=== PATIENT | female | born 1960 | race African-American/Black ===

== ENCOUNTER 2017-03-16 23:49 | Emergency (ER) | payer OTHER ==
[~2017-03-16] VITALS: Ht 167.6 cm; Wt 125.6 kg
[2017-03-17] MEDS ORDERED: SULFAMETHOXAZO480 ML ORAL
[2017-03-17] MEDS ORDERED: AMOX TR-K CLV1 EAC2 ORAL
[2017-03-17] MEDS ORDERED: AMLODIPINE BESYL5 MG ORAL
[2017-03-17] MEDS ORDERED: HYDROmorphone 1mg/ml Carpuject IVP ONE (00:45)
[2017-03-17 00:57] LABS: EOSINOPHILS % (AUTO) 3.4 % (0.0-3.0); LYMPHOCYTES % (AUTO) 34.1 % (20.0-45.0); MEAN CORPUSCULAR HEMOGLOBIN 30.2 PG (27.0-31.0); MEAN CORPUSCULAR HGB CONC 32.7 G/DL (32.0-36.0); MEAN CORPUSCULAR VOLUME 92 FL (80-99); MEAN PLATELET VOLUME 6.2 FL (6.5-10.1); MONOCYTES % (AUTO) 4.4 % (1.0-10.0); NEUTROPHILS % (AUTO) 57.1 % (45.0-75.0); PLATELET COUNT 378 K/UL (150-450); RED BLOOD COUNT 4.26 M/UL (4.20-5.40); RED CELL DISTRIBUTION WIDTH 14.3 % (11.6-14.8); WHITE BLOOD COUNT 5.8 K/UL (4.8-10.8)
[2017-03-17 01:19] LABS: ANION GAP 15 (5-15); CALCIUM 10.5 mg/dL (8.6-10.2); CARBON DIOXIDE 26 mEQ/L (20-30); CHLORIDE 102 mEQ/L (98-107); CREATININE 0.7 mg/dL (0.5-0.9); GLOMERULAR FILTRATION RATE > 60 mL/min (>60); HEMOLYSIS 0; POTASSIUM 3.9 mEQ/L (3.4-4.9); SODIUM 143 mEQ/L (135-145)
[2017-03-17] MEDS ORDERED: HYDROCODON-ACE1 EA15 ORAL (02:42)
--- NOTE | 2017-03-17 02:42 | Emergency Room Report ---
History of Present Illness General Chief Complaint: Pain Source: Patient Present Illness HPI A 56-year-old male who had a recent left knee replacement. She presents with left knee pain and leg swelling. Has been ongoing for about a week. She went to urgent care yesterday through her insurance. Ultrasound and knee show no fluid. He did not do a DVT study. Patient said is better when she elevates the leg. She does that his swelling goes down but localized to the knee. Denies any trauma. No fever chill been no nausea no vomiting. Pain is 8/10. Worse with walking. Allergies: Uncoded Allergies: SHELLFISH (Allergy, Intermediate, 03/16/17) Patient History Past Medical History: see triage record, old chart reviewed Past Surgical History: none Pertinent Family History: none Social History: Denies: smoking Last Menstrual Period: 09/26/2015 Now: No : 3 Para: 2 Immunizations: other Reviewed Nursing Documentation: PMH: Agreed, PSxH: Agreed Nursing Documentation-PMH Hx Hypertension: Yes Review of Systems Eye: Denies: blurred vision, eye pain ENT: Denies: ear pain, nose congestion, throat swelling Respiratory: Denies: cough, shortness of breath Cardiovascular: Denies: chest pain, palpitations Gastrointestinal: Denies: abdominal pain, diarrhea, nausea, vomiting Musculoskeletal: Reports: joint pain, joint swelling, muscle pain, Denies: back pain Skin: Denies: rash Neurological: Denies: headache, numbness Endocrine: Denies: increased thirst, increased urine Hematologic/Lymphatic: Denies: easy bruising All Other Systems: negative except mentioned in HPI Physical Exam Vital Signs Date Time Temp Pulse Resp B/P Pulse Ox O2 Delivery O2 Flow Rate FiO2 03/16/17 23:54 98.4 97 14 135/75 98 Room Air vitals normal Sp02 EP Interpretation: reviewed, normal General Appearance: well appearing, no apparent distress, alert, obese Head: normocephalic, atraumatic Eyes: bilateral eye EOMI, bilateral eye PERRL ENT: hearing grossly normal, normal pharynx Neck: full range of motion, supple, no meningismus Respiratory: chest non-tender, lungs clear, normal breath sounds Cardiovascular #1: regular rate, rhythm, no murmur Gastrointestinal: normal bowel sounds, non tender, no mass, no organomegaly, no bruit, non-distended Musculoskeletal: back normal, gait/station normal, normal range of motion, other - Left leg: Surgical scar healing well. 1+ edema from the knee to the foot. Normal pulses. No warmth. No calf tenderness. Neurologic: alert, oriented x3 Psychiatric: mood/affect normal Skin: warm/dry Medical Decision Making Diagnostic Impression: Primary Impression: Leg edema, left Additional Impression: Post-operative pain ER Course Patient presents with postoperative pain and swelling. No evidence of DVT. She has full range of motion of the joint. No evidence of septic joint. Doubt cellulitis. Labs unremarkable. Pain is well-controlled. We'll discharge home. Other X-Ray Diagnostic Results X-Ray ordered: Left knee x-rays # of Views/Limited Vs Complete: 3 View Interpretation: no fractures, no dislocation, no soft tissue swelling Indication: Swelling Impression: Other - Postoperative changes Date Electronically Signed: Mar 17, 2017 Time Electronically Signed: 02:41 Interpreting ER Physician: Lul Cleveland MD CT/MRI/US Diagnostic Results CT/MRI/US Diagnostic Results : Imaging Test Ordered: Left leg US Impression negative DVT per quality nurse Last Vital Signs Date Time Temp Pulse Resp B/P Pulse Ox O2 Delivery O2 Flow Rate FiO2 03/16/17 23:54 98.4 97 14 135/75 98 Room Air Status: improved Disposition: HOME, SELF-CARE Condition: Stable Scripts Hydrocodone/Acetaminophen 5-325* (HYDROCODONE/ACETAMINOPHEN 5-325*) 1 Each Tablet 1 TAB ORAL Q6H Y for For Pain, #20 TAB 0 Refills Prov: LUL CLEVELAND M.D. 03/17/17 Referrals: [employer] [facility],REFERRIN (PCP) Additional Instructions: Followup with your DrTeresa in 2-5 days. Return if symptom worsen. Elevate your leg. LUL CLEVELAND M.D. Mar 17, 2017 02:42
[2017-03-17 02:50] VITALS: BP 137/77
[2017-03-17 02:51] VITALS: BP 135/75
--- NOTE | 2017-03-17 09:24 | Diagnostic Imaging Report ---
Indications: Left knee pain Technique: 2 views left knee Findings: Comparison: None Soft tissues are mildly, diffusely swollen. Increased density is present in the former region of the suprapatellar bursa. Components of the prosthesis intact, normally aligned. No fracture, dislocation, joint space widening, lytic destruction, periosteal reaction, soft tissue gas or foreign body, or other acute change demonstrated. Small well-corticated osseous densities project over the posterior margin of the knee joint space on lateral view. No periprosthetic lucency or other chronic change demonstrated. IMPRESSION: Soft tissue swelling, nonspecific Fluid in the former region of suprapatellar bursa (typically resected with performance of arthroplasty (not excludable Knee joint prosthesis intact
--- NOTE | 2017-03-17 13:46 | Diagnostic Imaging Report ---
APPROVED REPORT CPT Code: 15084 Present Symptoms Lower Extremity Pain: Left Lower Extremity Edema: Left LEFT LEG: Venous imaging reveals a patent deep venous system. There is no evidence of thrombus within the femoral, popliteal or tibial segments. The greater saphenous vein is also within normal limits. Doppler indicates normal spontaneous flow within these segments.
== END 2017-03-17 02:52 | disposition home or self-care (01) ==
LOC: EMR 03-17 00:38
DX: G89.18 Other acute postprocedural pain (principal); M25.562 Pain in left knee; R60.0 Localized edema; Z96.652 Presence of left artificial knee joint; Z91.013 Allergy to seafood
CPT/HCPCS: 36415; 73562; 80048; 85025; 93971; 96374; 96375; 99284; J1170; J2405

== ENCOUNTER 2019-11-14 10:05 | Emergency (ER) | payer BC, MEDICAID ==
[~2019-11-14] VITALS: Ht 170.2 cm; Wt 135.2 kg
[~2019-11-14 10:05] MED LIST: AMLODIPINE BESYL5 MG ORAL; AMOX TR-K CLV1 EAC2 ORAL; HYDROCODON-ACE1 EA15 ORAL; SULFAMETHOXAZO480 ML ORAL
[2019-11-14 10:15] VITALS: BP 131/79
--- NOTE | 2019-11-14 10:20 | NUR ---
ED Nurse Note: Patient came to ED from home c/o 5/10 chest pressure x 2 weeks. Pain persists whether resting or exerting herself, does not worsen on exertion. Patient denies, shortness of breath, nausea, or radiating chest pain. Patient AxO x 4, no s/s of acut distress. Patient on the ekg monitor, bed in lowest position. Family member at bedside.
--- NOTE | 2019-11-14 10:26 | Emergency Room Report ---
History of Present Illness General Chief Complaint: Chest Pain Source: Patient, Family Member - sister Present Illness HPI Patient is a 59-year-old female past medical history of obesity, hypertension and hyperlipidemia who presents to the ER complaining of chest pain. Patient complains of substernal chest pressure that is been intermittent for the past 3 weeks. She states that when she gets the pain she gets short of breath and diaphoretic. She denies any recent travel. She denies being on any hormone replacement therapy she denies any abdominal pain, nausea or vomiting. She is not on daily aspirin. She states that her mother had CHF. 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 Patient states that she had bilateral knee replacements 1 year ago and one 2 years ago and since then has had significant weight increase and decreased physical activity. She states that she does get around on her own daily though. Allergies: Uncoded Allergies: SHELLFISH (Allergy, Intermediate, 03/16/17) Patient History Past Medical History: HTN, other - HLD Past Surgical History: other - BL knee replacement Social History: Denies: smoking, alcohol use, drug use Last Menstrual Period: MENOPAUSAL Now: No Nursing Documentation-[facility] Past Medical History: No History, Except For Hx Hypertension: Yes Review of Systems All Other Systems: negative except mentioned in HPI Physical Exam Vital Signs Date Time Temp Pulse Resp B/P (MAP) Pulse Ox O2 Delivery O2 Flow Rate FiO2 11/14/19 10:12 97.2 79 20 131/79 (96) 100 Room Air Sp02 EP Interpretation: reviewed, normal General Appearance: no apparent distress, alert, GCS 15, non-toxic, obese Head: normocephalic, atraumatic Eyes: bilateral eye normal inspection, bilateral eye PERRL ENT: hearing grossly normal, normal pharynx, no angioedema, normal voice Neck: full range of motion, supple/symm/no masses Respiratory: chest non-tender, lungs clear, normal breath sounds, speaking full sentences Cardiovascular #1: regular rate, rhythm, no edema Gastrointestinal: normal bowel sounds, non tender, soft, non-distended, no guarding, no rebound Rectal: deferred Genitourinary: normal inspection, no CVA tenderness Musculoskeletal: back normal, normal range of motion, calf tenderness, gait/ station normal, non-tender Neurologic: alert, motor strength/tone normal, oriented x3, sensory intact, responsive, speech normal Psychiatric: judgement/insight normal, memory normal, mood/affect normal, no suicidal/homicidal ideation Skin: no rash Lymphatic: no adenopathy Medical Decision Making Diagnostic Impression: Primary Impression: Chest pain ER Course 11:19 am patient's EKG demonstrates no ST elevation. Patient given 162 mg of aspirin as well as sublingual nitro. Patient still complains of persistent substernal chest pressure 5 out of 10. I have ordered for 50 mg of IV Toradol. Patient's d-dimer is elevated CT angios ordered to rule out pulmonary embolism. 0105 pm I spoke with Dr. Klein regarding the patient. Patient will be admitted to telemetry. CT Nga of the chest is still pending at the time of admission and he is aware of this. Will be admitted for chest pain rule out ACS. EKG Diagnostic Results EKG Time: 10:19 EP Interpretation: MD Josie Rate: normal Rhythm: NSR ST Segments: no acute changes ASA given to the pt in ED: Yes Rhythm Strip Diag. Results Rhythm Strip Time: 10:25 EP Interpretation: yes Rate: 74 Rhythm: NSR, no PVC's, no ectopy Last Vital Signs Date Time Temp Pulse Resp B/P (MAP) Pulse Ox O2 Delivery O2 Flow Rate FiO2 11/14/19 10:12 97.2 79 20 131/79 (96) 100 Room Air Disposition: PLACE IN OBSERVATION Condition: Critical Physician Consult: Meg Arriaga M.D. Nov 14, 2019 10:26
[2019-11-14] MEDS ORDERED: Aspirin Baby 81mg ORAL ONE (10:30)
[2019-11-14] MEDS ORDERED: Nitroglycerin Subl 0.4mg tab SL PRN ×2 (10:30→17:15)
--- NOTE | 2019-11-14 10:38 | NUR ---
ED Nurse Note: 20 g IV started in right AC. Blood drawn and sent to lab. Patient tolerated nitro well, current BP 110/61.
[2019-11-14] MEDS ORDERED: ATORVASTATIN CA40 MG ORAL (10:42)
[2019-11-14 10:54] LABS: BASOPHILS % (AUTO) 1.5 % (0.0-2.0); EOSINOPHILS % (AUTO) 2.4 % (0.0-3.0); HEMATOCRIT 39.9 % (37.0-47.0); HEMOGLOBIN 13.5 G/DL (12.0-16.0); LYMPHOCYTES % (AUTO) 39.6 % (20.0-45.0); MEAN CORPUSCULAR VOLUME 88 FL (80-99); MONOCYTES % (AUTO) 5.7 % (1.0-10.0); NEUTROPHILS % (AUTO) 50.8 % (45.0-75.0); PLATELET COUNT 313 K/UL (150-450); RED BLOOD COUNT 4.55 M/UL (4.20-5.40); RED CELL DISTRIBUTION WIDTH 13.2 % (11.6-14.8); WHITE BLOOD COUNT 6.4 K/UL (4.8-10.8)
[2019-11-14 11:15] LABS: ANION GAP 9 mmol/L (5-15); BLOOD UREA NITROGEN 9 mg/dL (7-18); CALCIUM 9.7 MG/DL (8.5-10.1); CARBON DIOXIDE 27 MMOL/L (21-32); CHLORIDE 107 MMOL/L (98-107); CREATININE 0.6 MG/DL (0.55-1.30); POTASSIUM 3.5 MMOL/L (3.5-5.1); SODIUM 143 MMOL/L (136-145)
[2019-11-14 11:24] LABS: ALANINE AMINOTRANSFERASE 21 U/L (12-78); ALBUMIN 3.4 G/DL (3.4-5.0); ALBUMIN/GLOBULIN RATIO 0.9 (1.0-2.7); ALKALINE PHOSPHATASE 161 U/L (46-116); ASPARTATE AMINO TRANSFERASE 15 U/L (15-37); BILIRUBIN,TOTAL 0.5 MG/DL (0.2-1.0)
[2019-11-14] MEDS ORDERED: Omnipaque 350 100ml vial INJ PRN (11:30)
[2019-11-14] MEDS ORDERED: Ketorolac 30mg Inj IV ONE (11:30)
[2019-11-14 12:00] VITALS: BP 130/80
[2019-11-14 14:01] VITALS: BP 122/68
--- NOTE | 2019-11-14 14:09 | NUR ---
ED Nurse Note: Handoff report given to Martina FERRARO.
--- NOTE | 2019-11-14 14:17 | Diagnostic Imaging Report ---
ndication: Chest pain, substernal chest pressure. Intermittent for the last 3 weeks Technique: IV administration nonionic contrast. Spiral acquisitions obtained from the lung bases to the lung apices. Multiplanar and 3-D reconstructions were generated. Total dose length product 1479 mGycm. CTDIvol(s) 5, 20, 52, 39 mGy. Dose reduction achieved using automated exposure control Comparison: none Findings: There is good quality opacification of the pulmonary arteries. No intraluminal filling defects or other findings to suggest acute pulmonary embolism demonstrated. The main pulmonary artery is mildly ectatic, measuring 36 mm in diameter, all of the main pulmonary arteries are nondilated. No evidence of right ventricular dilatation. No evidence of thoracic aortic aneurysm or dissection. Normal branching anatomy and caliber of the great neck vessels. There is origin stenosis and poststenotic dilatation of the celiac axis origin, appearance of which is suggestive of some arcuate ligament compression. The lungs demonstrate diffuse mild groundglass opacity and a somewhat mosaic pattern. No definite interstitial septal thickening. No dense consolidation. There are posterior dependent atelectatic changes of the lung bases. There is a small cystic space in the right middle lobe. No masses, nodules, or pleural effusions are demonstrated. The heart is normal in size. There is no pericardial effusion. No mediastinal or hilar mass or adenopathy. The included portion of the thyroid is unremarkable. Included upper abdominal anatomy is unremarkable. Impression: Negative for evidence of acute pulmonary embolus or other acute thoracic vascular pathology Mild pulmonary parenchymal groundglass opacity, nonspecific. This may reflect mild pulmonary edema, COPD changes, atelectasis, postinflammatory changes, among other possibilities Single small bulla within the right middle lobe The CT scanner at [facility] is accredited by the [employer] and the scans are performed using protocols designed to limit radiation exposure to as low as reasonably achievable to attain images of sufficient resolution adequate for diagnostic evaluation.
--- NOTE | 2019-11-14 15:20 | Diagnostic Imaging Report ---
Indication: Chest pain Technique: One view of the chest Comparison: none Findings: The lungs and pleural spaces are clear. The heart size is normal. Impression: Negative
[2019-11-14] MEDS ORDERED: Miralax 17gm pkt ORAL PRN (17:15)
[2019-11-14] MEDS ORDERED: Milk of Magnesia 30ml Ud ORAL PRN (17:15)
[2019-11-14] MEDS ORDERED: Aluminum Hydroxide Gel Susp 15ml ORAL PRN (19:15)
--- NOTE | 2019-11-14 19:40 | NUR ---
HAND-OFF: Report given to Chloe RN pt in stable condition.
--- NOTE | 2019-11-14 19:50 | History and Physical ---
History of Present Illness General Reason for Hospitalization: Chest Pain Present Illness HPI This is a 59-year-old female with a past medical history of hypertension, hyperlipidemia, obesity who presents with intermittent chest pressure lasting minutes at a time midsternal nonradiating with associated diaphoresis on and off for the past 3 weeks. She denies having any pain like this before. She states that she does not have a recent cold sinus infection and finished a course of Augmentin and Bactrim 2 to 3 weeks ago. Patient states that she does think her chest pain gets worse when she lays down. She denies any other acid reflux symptoms. In the ER the patient had stable vital signs CBC unremarkable CMP unremarkable. Initial troponin negative. D-dimer checked and was 1.81 so a CTPA was ordered which showed no pulmonary embolism and mild pulmonary parenchymal opacities which are nonspecific and include a broad differential. Allergies none Medications atorvastatin 40 mg, amlodipine 5 mg Past medical history see HPI Mother with CAD and [place] at 76 Surgical history knee replacement Social history denies tobacco alcohol and drug use Review of systems: Constitutional: Denies: chills, fever, malaise, weakness, other +diaphoresis HEENT: Denies: eye pain, blurred vision, tearing, double vision, ear pain, ear discharge, nose pain, nose congestion, throat pain, throat swelling, mouth pain , mouth swelling, Cardiovascular: Denies: chest pain (currently), edema, lightheadedness, palpitations, syncope, Respiratory: Denies: cough, orthopnea, shortness of breath, SOB with excertion , SOB at rest, sputum, stridor, wheezing, other Gastrointestinal/Abdominal: Denies: abdomen distended, abdominal pain, black stools, tarry stools, blood in stool, constipated, diarrhea, difficulty swallowing, nausea, poor appetite, poor fluid intake, rectal bleeding, vomiting , other Genitourinary: Denies: burning, discharge, frequency, flank pain, hematuria, incontinence, pain, urgency, other Neurologic/Psychiatric: Denies: anxiety, depressed, emotional problems, headache, numbness, paresthesia, pre-existing deficit, seizure, tingling, tremors, weakness, other Endocrine: Denies: excessive sweating, flushing, intolerance to cold, intolerance to heat, increased hunger, increased thirst, increased urine, unexplained weight gain, unexplained weight loss, other MSK: denies joint pains, swelling, stiffness Hematologic/Lymphatic: Denies: anemia, easy bleeding, easy bruising, other Allergies: Uncoded Allergies: SHELLFISH (Allergy, Intermediate, 03/16/17) Medication History Scheduled Amlodipine Besylate* (Amlodipine Besylate*), 5 MG ORAL DAILY, (Reported) Atorvastatin Calcium* (Atorvastatin Calcium*), 40 MG ORAL BEDTIME, (Reported) Discontinued Medications Amoxicillin/Potassium Clav 875-125 Mg Tab* (Amox Tr-K Clv 875-125 Mg Tab*), 1 TAB ORAL EVERY 12 HOURS, (Reported) Discontinued Reason: Therapy completed Hydrocodone/Acetaminophen 5-325* (Hydrocodone/Acetaminophen 5-325*), 1 TAB ORAL Q6H PRN for For Pain Discontinued Reason: Therapy completed Sulfamethoxazole/Trimethoprim (Sulfamethoxazole-Tmp Susp), 5 ML ORAL TWICE A DAY , (Reported) Discontinued Reason: Therapy completed Patient History Healthcare decision maker Resuscitation status Full Code Advanced Directive on File Physical Exam Physical Exam Narrative General: WDWN female in NAD, A&O x 4 HEENT: Normocephalic cephalic atraumatic, pupils equal round reactive to light and accommodation, nares patent and no symmetrical, no tonsillar exudates, mucous membranes moist CV: Regular rate regular rhythm, no murmurs, rubs, or gallops no tenderness to palpation of chest wall Pulm: Lungs clear to auscultation bilaterally. No wheezes, rhonchi, or rales GI: Soft, nontender, nondistended, bowel sounds present Neuro: CN 2-12 intact bilaterally, no focal signs. Ext: No lower extremity edema bilaterally Skin: no rashes lesions or ulcers Msk: Joints symmetrical in upper extremity and lower extremity bilaterally, no joint swelling. Lymph: No lymphadenopathy in upper extremity and lower extremity Last 24 Hour Vital Signs Date Time Temp Pulse Resp B/P (MAP) Pulse Ox O2 Delivery O2 Flow Rate FiO2 11/14/19 17:33 Room Air 11/14/19 14:01 97.1 78 19 122/68 100 Room Air 11/14/19 12:41 97.1 11/14/19 12:00 97.3 76 19 130/80 100 Room Air 11/14/19 10:27 131/79 11/14/19 10:15 97.2 79 20 131/79 100 Room Air 11/14/19 10:15 79 20 Room Air 11/14/19 10:12 97.2 79 20 131/79 (96) 100 Room Air Laboratory Tests Test 11/14/19 10:35 11/14/19 18:50 White Blood Count 6.4 K/UL (4.8-10.8) Red Blood Count 4.55 M/UL (4.20-5.40) Hemoglobin 13.5 G/DL (12.0-16.0) Hematocrit 39.9 % (37.0-47.0) Mean Corpuscular Volume 88 FL (80-99) Mean Corpuscular Hemoglobin 29.6 PG (27.0-31.0) Mean Corpuscular Hemoglobin Concent 33.8 G/DL (32.0-36.0) Red Cell Distribution Width 13.2 % (11.6-14.8) Platelet Count 313 K/UL (150-450) Mean Platelet Volume 6.2 FL (6.5-10.1) L Neutrophils (%) (Auto) 50.8 % (45.0-75.0) Lymphocytes (%) (Auto) 39.6 % (20.0-45.0) Monocytes (%) (Auto) 5.7 % (1.0-10.0) Eosinophils (%) (Auto) 2.4 % (0.0-3.0) Basophils (%) (Auto) 1.5 % (0.0-2.0) D-Dimer 1.81 mg/L FEU (0.00-0.49) H Sodium Level 143 MMOL/L (136-145) Potassium Level 3.5 MMOL/L (3.5-5.1) Chloride Level 107 MMOL/L (98-107) Carbon Dioxide Level 27 MMOL/L (21-32) Anion Gap 9 mmol/L (5-15) Blood Urea Nitrogen 9 mg/dL (7-18) Creatinine 0.6 MG/DL (0.55-1.30) Estimat Glomerular Filtration Rate > 60 mL/min (>60) Glucose Level 100 MG/DL (74-106) Calcium Level 9.7 MG/DL (8.5-10.1) Magnesium Level 2.1 MG/DL (1.8-2.4) Total Bilirubin 0.5 MG/DL (0.2-1.0) Aspartate Amino Transf (AST/SGOT) 15 U/L (15-37) Alanine Aminotransferase (ALT/SGPT) 21 U/L (12-78) Alkaline Phosphatase 161 U/L (46-116) H Troponin I 0.000 ng/mL (0.000-0.056) 0.001 ng/mL (0.000-0.056) Pro-B-Type Natriuretic Peptide 5 pg/mL (0-125) Total Protein 7.4 G/DL (6.4-8.2) Albumin 3.4 G/DL (3.4-5.0) Globulin 4.0 g/dL Albumin/Globulin Ratio 0.9 (1.0-2.7) L Height (Feet): 5 Height (Inches): 7.00 Weight (Pounds): 298 Medications Current Medications Medications (Trade) Dose Ordered Sig/Melissa Route PRN Reason Start Time Stop Time Status Last Admin Dose Admin Aluminum Hydroxide (Amphojel) 960 mg Q6H PRN ORAL heartburn 11/14/19 19:15 12/14/19 19:14 Amlodipine Besylate (Norvasc) 5 mg DAILY ORAL 11/15/19 09:00 12/15/19 08:59 Atorvastatin Calcium (Lipitor) 40 mg BEDTIME ORAL 11/14/19 21:00 12/14/19 20:59 Bisacodyl (Dulcolax) 10 mg DAILYPRN PRN RECTAL Constipation 11/14/19 17:15 12/14/19 17:14 Docusate Sodium (Colace) 100 mg EVERY 12 HOURS ORAL 11/14/19 21:00 12/14/19 20:59 Magnesium Hydroxide (Mom) 30 ml HSPRN PRN ORAL Constipation 11/14/19 17:15 12/14/19 17:14 Nitroglycerin (Ntg) 0.4 mg Q5M PRN SL Prn Chest Pain 11/14/19 17:15 12/14/19 17:14 Pantoprazole (Protonix) 40 mg DAILY ORAL 11/14/19 19:15 12/14/19 19:14 Polyethylene Glycol (Miralax) 17 gm DAILYPRN PRN ORAL Constipation 11/14/19 17:15 12/14/19 17:14 Prochlorperazine (Compazine) 10 mg Q6H PRN IVP Nausea & Vomiting 11/14/19 17:15 12/14/19 17:14 Assessment/Plan Assessment/Plan: This is a 59-year-old female with a history of hypertension obesity hyperlipidemia presenting with atypical chest pain. #Chest pain rule out ACS #Hypertension #Morbid Obesity #Family history of coronary artery disease -Telemetry -Trend troponins -2D echocardiogram -Start Protonix as GERD may be possible etiology -Cardiology consult: Dr. Mcduffie -Patient may need stress test given risk factors (Obesity, HTN, family history) -N.p.o. after midnight -We will evp general counsel patient on diet and exercise 38 minutes spent on this encounter. Discussed with RN and Cardiology. > 50% spent on counseling and care coordination. Time of note may not reflect time patient was seen. Ajit Alfaro D.O. Nov 14, 2019 19:50
[2019-11-14 20:00] VITALS: BP 110/73
--- NOTE | 2019-11-14 20:00 | NUR ---
NURSE NOTES: Received pt and report from RONAN Mack. Observed pt resting in bed with both eyes open and watching television. Pt is A/Ox4. pvc monitor is in placed; pt is NSR. IV site intact, asymptomatic, and patent. Bed is in the lowest position and locked. Call light and bedside table is within reach. No signs/symptoms of acute distress noted at this time. Will continue plan of care.
--- NOTE | 2019-11-14 20:09 | NUR ---
NURSE NOTES: pt admitted to tele unit in stable condition no complains of pain at this time. V/s within normal limit. All belonging were check, she will only keep her cell phone with here and cloth. Her wallet and other valuables will be sent home with relatives today. Pt is on monitor technician and shows no signs of cardiac or respiratory distress at this time. Bed in lowest position and locked. Call light within reach. pt presently NPO Addendum: 11/14/19 at 2015 by Martina Witt RN NURSE NOTES: 1450 pt admitted to tele unit in stable condition no complains of pain at this time. V/s within normal limit. All belonging were check, she will only keep her cell phone with here and cloth. Her wallet and other valuables will be sent home with relatives today. Pt is on monitor technician and shows no signs of cardiac or respiratory distress at this time. Bed in lowest position and locked. Call light within reach. pt presently NPO
[2019-11-14] MEDS: Atorvastatin 20mg tab ORAL SCH (20:46)
[2019-11-14] MEDS: Docusate 100mg cap ORAL SCH (20:46)
[2019-11-15] VITALS: BP 125/80
--- NOTE | 2019-11-15 02:25 | NUR ---
NURSE NOTES: Observed pt asleep in bed. No signs/symptoms of acute distress noted at this time. Will continue plan of care.
[2019-11-15 04:00] VITALS: BP 119/72
[2019-11-15 05:39] LABS: BASOPHILS % (AUTO) 1.1 % (0.0-2.0); EOSINOPHILS % (AUTO) 2.6 % (0.0-3.0); HEMATOCRIT 37.5 % (37.0-47.0); HEMOGLOBIN 12.6 G/DL (12.0-16.0); LYMPHOCYTES % (AUTO) 38.4 % (20.0-45.0); MEAN CORPUSCULAR VOLUME 89 FL (80-99); MONOCYTES % (AUTO) 4.4 % (1.0-10.0); NEUTROPHILS % (AUTO) 53.5 % (45.0-75.0); PLATELET COUNT 293 K/UL (150-450); RED BLOOD COUNT 4.22 M/UL (4.20-5.40); RED CELL DISTRIBUTION WIDTH 13.2 % (11.6-14.8); WHITE BLOOD COUNT 7.2 K/UL (4.8-10.8)
[2019-11-15 06:12] LABS: ALANINE AMINOTRANSFERASE 19 U/L (12-78); ALBUMIN 3.2 G/DL (3.4-5.0); ALBUMIN/GLOBULIN RATIO 0.9 (1.0-2.7); ALKALINE PHOSPHATASE 152 U/L (46-116); ANION GAP 10 mmol/L (5-15); ASPARTATE AMINO TRANSFERASE 13 U/L (15-37); BILIRUBIN,TOTAL 0.4 MG/DL (0.2-1.0); BLOOD UREA NITROGEN 14 mg/dL (7-18); CALCIUM 9.5 MG/DL (8.5-10.1); CARBON DIOXIDE 27 MMOL/L (21-32); CHLORIDE 106 MMOL/L (98-107); CREATININE 0.7 MG/DL (0.55-1.30); PHOSPHORUS 3.7 MG/DL (2.5-4.9); SODIUM 143 MMOL/L (136-145)
--- NOTE | 2019-11-15 07:30 | NUR ---
NURSE NOTES: pt in bed sleeping. Pt on air sampling and monitoring no signs of cardiac or respiratory distress at this moment. Call light within reach. Bed is locked and in lowest position. Pt is currently NPO, for future procedure.
--- NOTE | 2019-11-15 07:35 | NUR ---
HAND-OFF: Report given to RONAN Mack. Plan of care endorsed.
[2019-11-15 08:03] VITALS: BP 130/77
[2019-11-15] MEDS: Docusate 100mg cap ORAL SCH ×2 (09:47→22:03)
[2019-11-15 12:00] VITALS: BP 130/77
--- NOTE | 2019-11-15 14:12 | NUR ---
*-* NO INFORMATION IN THE BAR UNABLE TO SEND CLINICALS OR REVIEWS *-*
--- NOTE | 2019-11-15 14:14 | NUR ---
CASE MANAGEMENT: INITIAL REVIEW 59YR OLD FEMALE FROM HOME CC: CHEST PAIN SI:CHEST PAIN 97.1 79 20 131/79 100% ON RA ALK-PHOS 161 D-DIMER 1.81 IS:ASA PO X1 IV TORADOL X1 NTG SL X1 CHEST X-RAY CHEST CTA \: 2E TELE UNIT DCP: HOME WHEN STABLE PLAN: STRESS TEST CARDIO WORK-UP CASE MANAGEMENT: INITIAL REVIEW 11/15/19 SI:CHEST PAIN 97.9 84 18 130/77 97% ON RA ALK-PHOS 152 IS:NORVASC PO QD LIPITOR PO BID PROTONIX PO QD COLACE PO BID \: 2E TELE UNIT DCP: HOME WHEN STABLE PLAN: STRESS TEST TROP SERIAL Addendum: 11/15/19 at 1434 by KARIN MCFADDEN LVN INTERQUAL MET
[2019-11-15 16:00] VITALS: BP 113/63
--- NOTE | 2019-11-15 16:50 | Cardiac Electrophysiology PN ---
Subjective Subjective [id number] Objective Last 24 Hour Vital Signs Date Time Temp Pulse Resp B/P (MAP) Pulse Ox O2 Delivery O2 Flow Rate FiO2 11/15/19 09:47 84 130/77 11/15/19 08:46 Room Air 11/15/19 08:03 97.9 84 18 130/77 (94) 97 11/15/19 04:00 97.9 87 17 119/72 (88) 94 11/15/19 04:00 87 11/15/19 00:00 97.0 85 17 125/80 (95) 98 11/15/19 00:00 86 11/14/19 21:00 Room Air 11/14/19 20:00 83 11/14/19 20:00 98.2 84 18 110/73 (85) 95 11/14/19 17:33 Room Air Intake and Output 11/14/19 11/15/19 19:00 07:00 Intake Total 240 ml Balance 240 ml Intake Oral 240 ml # Voids 2 Laboratory Tests Test 11/14/19 18:50 11/15/19 00:46 11/15/19 04:40 Troponin I 0.001 ng/mL (0.000-0.056) 0.000 ng/mL (0.000-0.056) White Blood Count 7.2 K/UL (4.8-10.8) Red Blood Count 4.22 M/UL (4.20-5.40) Hemoglobin 12.6 G/DL (12.0-16.0) Hematocrit 37.5 % (37.0-47.0) Mean Corpuscular Volume 89 FL (80-99) Mean Corpuscular Hemoglobin 29.9 PG (27.0-31.0) Mean Corpuscular Hemoglobin Concent 33.6 G/DL (32.0-36.0) Red Cell Distribution Width 13.2 % (11.6-14.8) Platelet Count 293 K/UL (150-450) Mean Platelet Volume 5.6 FL (6.5-10.1) L Neutrophils (%) (Auto) 53.5 % (45.0-75.0) Lymphocytes (%) (Auto) 38.4 % (20.0-45.0) Monocytes (%) (Auto) 4.4 % (1.0-10.0) Eosinophils (%) (Auto) 2.6 % (0.0-3.0) Basophils (%) (Auto) 1.1 % (0.0-2.0) Sodium Level 143 MMOL/L (136-145) Potassium Level 4.0 MMOL/L (3.5-5.1) Chloride Level 106 MMOL/L (98-107) Carbon Dioxide Level 27 MMOL/L (21-32) Anion Gap 10 mmol/L (5-15) Blood Urea Nitrogen 14 mg/dL (7-18) Creatinine 0.7 MG/DL (0.55-1.30) Estimat Glomerular Filtration Rate > 60 mL/min (>60) Glucose Level 110 MG/DL (74-106) H Calcium Level 9.5 MG/DL (8.5-10.1) Phosphorus Level 3.7 MG/DL (2.5-4.9) Magnesium Level 2.1 MG/DL (1.8-2.4) Total Bilirubin 0.4 MG/DL (0.2-1.0) Aspartate Amino Transf (AST/SGOT) 13 U/L (15-37) L Alanine Aminotransferase (ALT/SGPT) 19 U/L (12-78) Alkaline Phosphatase 152 U/L (46-116) H Total Protein 6.7 G/DL (6.4-8.2) Albumin 3.2 G/DL (3.4-5.0) L Globulin 3.5 g/dL Albumin/Globulin Ratio 0.9 (1.0-2.7) L Mele Mcduffie MD Nov 15, 2019 16:50
[2019-11-15] MEDS ORDERED: Lexiscan 0.4mg/5ml syringe IV PRN (17:00)
--- NOTE | 2019-11-15 19:00 | Consultation ---
DATE OF CONSULTATION: 11/15/2019 CARDIOLOGY CONSULTATION CONSULTING PHYSICIAN: Mele Mcduffie M.D. REFERRING PHYSICIAN: Eileen Salcedo M.D. REASON FOR CONSULTATION: Chest pain in a patient with hypertension, hyperlipidemia, obesity. HISTORY OF PRESENT ILLNESS: The patient is a 59-year-old lady with history of hypertension, hyperlipidemia, and obesity, who presented to the emergency room with increasing chest pressure lasted minutes with midsternal, which was nonradiating. This was associated with diaphoresis which has been going on over the last 3 weeks. The patient denies any prior myocardial infarction or coronary artery disease or chest pains like this. The patient denies any prior stress test. The patient has recent cold" and finished course of Augmentin and Bactrim two weeks ago. The patient underwent an echocardiogram that showed ejection fraction 60% to 65% with no left ventricular hypertrophy. The patient also was found to have elevated D-dimer 1.[address] pulmonary angiogram was ordered that showed no evidence of pulmonary embolism. At the time of my evaluation, the patient denies any chest pain or shortness of breath. Her EKG was also normal. REVIEW OF SYSTEMS: Review of systems was negative other than what was mentioned in the history of present illness. PAST MEDICAL HISTORY: As mentioned above. MEDICATIONS: At home include amlodipine 5 mg daily, Lipitor 40 mg daily. FAMILY HISTORY: Mother had coronary artery disease and myocardial infarction at the age of 76. PAST SURGICAL HISTORY: Include knee replacement. SOCIAL HISTORY: Denies smoking, drink alcohol, or use of any drugs. PHYSICAL EXAMINATION: VITAL SIGNS: Show blood pressure of 130/70, pulse 84, respirations 18, and temperature 97.9. HEAD AND NECK: No JVD or carotid bruits. LUNGS: Clear. CARDIOVASCULAR: Regular S1 and S2 with no gallop or murmur. ABDOMEN: Soft and nontender. EXTREMITIES: No pitting edema. LABORATORY AND DIAGNOSTIC DATA: White count of 7.2, hemoglobin 12.7, hematocrit 37.5, platelet count 293. Sodium 142, potassium 4.0, BUN of 14, and creatinine 0.7. Troponin negative x3. ASSESSMENT: 1. Atypical chest pain. The patient however has multiple risk factors for coronary artery disease including age, hypertension, hyperlipidemia, and obesity. The patient already ruled out for myocardial infarction. We will schedule the patient for nuclear stress test for further evaluation. We will also get an echocardiogram to evaluate for ejection fraction and wall motion abnormality. It is of note that the chest CT angiogram show no evidence of pulmonary embolism and no evidence of aortic aneurysm or dissection. 2. Hypertension. Continue amlodipine 5 mg daily. 3. Hyperlipidemia on Lipitor. 4. Obesity. Thank you very much for allowing to participate in the care of this patient. Please do not hesitate to contact me for any questions regarding my evaluation. Sincerely, Mele Mcduffie M.D. DR: Jian JOB#: [id number] CC:
--- NOTE | 2019-11-15 19:00 | General Progress Note ---
Assessment/Plan Assessment/Plan: This is a 59-year-old female with a history of hypertension obesity hyperlipidemia presenting with atypical chest pain. #Chest pain rule out ACS #Hypertension #Morbid Obesity #Family history of coronary artery disease > CT PA negative for PE -Telemetry: no events -Trend troponins: negative -2D echocardiogram -Continue Protonix as GERD may be possible etiology -Cardiology consult: Dr. Mcduffie - NPO after midnight for stress test -N.p.o. after midnight -We will counselor supervisor patient on diet and exercise DVT PPx: HSQ Code status: Full 39 minutes spent on this encounter. Discussed with RN and Cardiology. > 50% spent on counseling and care coordination. Time of note may not reflect time patient was seen. Subjective Allergies: Coded Allergies: SHELLFISH DERIVED (Unverified Allergy, Unknown, 11/15/19) Uncoded Allergies: SHELLFISH (Allergy, Intermediate, 03/16/17) Subjective No acute events overnight per nursing. Patient no longer has any chest pain. Denies any fevers chills cough cold shortness of breath. No other complaints. Review of systems: Constitutional: Denies: chills, diaphoresis, fever, malaise, weakness, other HEENT: Denies: eye pain, blurred vision, tearing, double vision, ear pain, ear discharge, nose pain, nose congestion, throat pain, throat swelling, mouth pain , mouth swelling, Cardiovascular: Denies: chest pain, edema, lightheadedness, palpitations, syncope, Respiratory: Denies: cough, orthopnea, shortness of breath, SOB with excertion , SOB at rest, sputum, stridor, wheezing, other Gastrointestinal/Abdominal: Denies: abdomen distended, abdominal pain, black stools, tarry stools, blood in stool, constipated, diarrhea, difficulty swallowing, nausea, poor appetite, poor fluid intake, rectal bleeding, vomiting , other Genitourinary: Denies: burning, discharge, frequency, flank pain, hematuria, incontinence, pain, urgency, other Neurologic/Psychiatric: Denies: anxiety, depressed, emotional problems, headache, numbness, paresthesia, pre-existing deficit, seizure, tingling, tremors, weakness, other Endocrine: Denies: excessive sweating, flushing, intolerance to cold, intolerance to heat, increased hunger, increased thirst, increased urine, unexplained weight gain, unexplained weight loss, other MSK: denies joint pains, swelling, stiffness Hematologic/Lymphatic: Denies: anemia, easy bleeding, easy bruising, other Objective Last 24 Hour Vital Signs Date Time Temp Pulse Resp B/P (MAP) Pulse Ox O2 Delivery O2 Flow Rate FiO2 11/15/19 09:47 84 130/77 11/15/19 08:46 Room Air 11/15/19 08:03 97.9 84 18 130/77 (94) 97 11/15/19 04:00 97.9 87 17 119/72 (88) 94 11/15/19 04:00 87 11/15/19 00:00 97.0 85 17 125/80 (95) 98 11/15/19 00:00 86 11/14/19 21:00 Room Air 11/14/19 20:00 83 11/14/19 20:00 98.2 84 18 110/73 (85) 95 Intake and Output 11/14/19 11/15/19 19:00 07:00 Intake Total 240 ml Balance 240 ml Intake Oral 240 ml # Voids 2 Laboratory Tests 11/15/19 00:46: Troponin I 0.000 11/15/19 04:40: White Blood Count 7.2, Red Blood Count 4.22, Hemoglobin 12.6, Hematocrit 37.5, Mean Corpuscular Volume 89, Mean Corpuscular Hemoglobin 29.9, Mean Corpuscular Hemoglobin Concent 33.6, Red Cell Distribution Width 13.2, Platelet Count 293, Mean Platelet Volume 5.6L, Neutrophils (%) (Auto) 53.5, Lymphocytes (%) (Auto) 38.4, Monocytes (%) (Auto) 4.4, Eosinophils (%) (Auto) 2.6, Basophils (%) (Auto ) 1.1, Sodium Level 143, Potassium Level 4.0, Chloride Level 106, Carbon Dioxide Level 27, Anion Gap 10, Blood Urea Nitrogen 14, Creatinine 0.7, Estimat Glomerular Filtration Rate > 60, Glucose Level 110H, Calcium Level 9.5, Phosphorus Level 3.7, Magnesium Level 2.1, Total Bilirubin 0.4, Aspartate Amino Transf (AST/SGOT) 13L, Alanine Aminotransferase (ALT/SGPT) 19, Alkaline Phosphatase 152H, Total Protein 6.7, Albumin 3.2L, Globulin 3.5, Albumin/ Globulin Ratio 0.9L Height (Feet): 5 Height (Inches): 7.00 Weight (Pounds): 298 Objective General: WDWN female in NAD, A&O x 4 HEENT: Normocephalic cephalic atraumatic, pupils equal round reactive to light and accommodation, nares patent and no symmetrical, no tonsillar exudates, mucous membranes moist CV: Regular rate regular rhythm, no murmurs, rubs, or gallops Pulm: Lungs clear to auscultation bilaterally. No wheezes, rhonchi, or rales GI: Soft, nontender, nondistended, bowel sounds present Neuro: CN 2-12 intact bilaterally, no focal signs. Ext: No lower extremity edema bilaterally Skin: no rashes lesions or ulcers Msk: Joints symmetrical in upper extremity and lower extremity bilaterally, no joint swelling. Lymph: No lymphadenopathy in upper extremity and lower extremity Ajit Alfaro D.O. Nov 15, 2019 19:00
--- NOTE | 2019-11-15 19:44 | NUR ---
HAND-OFF: Report given to Laura/gretel pt in stable condition NPO at midnight for stress test, sign posted inside room.
--- NOTE | 2019-11-15 19:50 | NUR ---
NURSE NOTES: Received pt from RONAN Mack. Pt awake, alert, and talkative. Family at bedside. Bed in lowest position. Call light within reach. Will continue to monitor.
[2019-11-15 20:00] VITALS: BP 135/81
[2019-11-15] MEDS: Atorvastatin 20mg tab ORAL SCH (22:04)
[2019-11-15] MEDS: Heparin 5000 units/ml inj SUBQ SCH (22:05)
[2019-11-16] VITALS: BP 130/77
[2019-11-16 04:00] VITALS: BP 145/89
[2019-11-16 07:22] LABS: BASOPHILS % (AUTO) 1.9 % (0.0-2.0); EOSINOPHILS % (AUTO) 2.3 % (0.0-3.0); HEMATOCRIT 36.7 % (37.0-47.0); HEMOGLOBIN 12.6 G/DL (12.0-16.0); LYMPHOCYTES % (AUTO) 38.7 % (20.0-45.0); MEAN CORPUSCULAR VOLUME 88 FL (80-99); MONOCYTES % (AUTO) 5.5 % (1.0-10.0); NEUTROPHILS % (AUTO) 51.5 % (45.0-75.0); PLATELET COUNT 299 K/UL (150-450); RED BLOOD COUNT 4.16 M/UL (4.20-5.40); RED CELL DISTRIBUTION WIDTH 13.1 % (11.6-14.8); WHITE BLOOD COUNT 7.3 K/UL (4.8-10.8)
--- NOTE | 2019-11-16 07:35 | NUR ---
HAND-OFF: Report given to RONNA Bear. Pt stable.
[2019-11-16 07:44] LABS: ANION GAP 12 mmol/L (5-15); BLOOD UREA NITROGEN 17 mg/dL (7-18); CALCIUM 9.9 MG/DL (8.5-10.1); CARBON DIOXIDE 23 MMOL/L (21-32); CHLORIDE 107 MMOL/L (98-107); CHOLESTEROL 157 MG/DL (< 200); CREATININE 0.8 MG/DL (0.55-1.30); HDL CHOLESTEROL 60 MG/DL (40-60); PHOSPHORUS 3.9 MG/DL (2.5-4.9); POTASSIUM 3.6 MMOL/L (3.5-5.1); SODIUM 142 MMOL/L (136-145); TRIGLYCERIDES 54 MG/DL (30-150)
--- NOTE | 2019-11-16 07:44 | NUR ---
NURSE NOTES: Received report from RONAN Sanchez. Pt A/O x4, no s/sx of acute distress, breathing even and unlabored in RA. Pt NPO, scheduled for lexiscan today. IV site on R AC 20g patent and asymptomatic. bed on lowest position, call light within reach. Will continue plan of care.
[2019-11-16 08:00] VITALS: BP 125/75
--- NOTE | 2019-11-16 09:31 | Cardiac Electrophysiology PN ---
Assessment/Plan Assessment/Plan 1. Atypical chest pain and multiple risk factors for coronary artery disease including age, hypertension, hyperlipidemia, and obesity. The patient already ruled out for myocardial infarction. Getting for nuclear stress test today.Echocardiogram EF 65%. Chest CT angiogram show no evidence of pulmonary embolism or aortic aneurysm or dissection. 2. Hypertension. Continue amlodipine 5 mg daily. 3. Hyperlipidemia on Lipitor. 4. Obesity. Subjective Subjective Scheduled for nuclear stress test today Objective Last 24 Hour Vital Signs Date Time Temp Pulse Resp B/P (MAP) Pulse Ox O2 Delivery O2 Flow Rate FiO2 11/16/19 04:00 98.2 89 22 145/89 (107) 99 11/16/19 04:00 82 11/16/19 00:00 93 11/16/19 00:00 97.7 92 20 130/77 (94) 99 11/15/19 21:00 Room Air 11/15/19 20:00 98.1 78 20 135/81 (99) 99 11/15/19 20:00 78 11/15/19 16:00 97.5 82 16 113/63 (80) 98 11/15/19 16:00 90 11/15/19 12:00 97.9 84 18 130/77 (94) 97 11/15/19 12:00 78 11/15/19 09:47 84 130/77 Intake and Output 11/15/19 11/16/19 19:00 07:00 Intake Total 250 ml Balance 250 ml Intake Oral 250 ml # Voids 2 2 Laboratory Tests Test 11/16/19 06:30 White Blood Count 7.3 K/UL (4.8-10.8) Red Blood Count 4.16 M/UL (4.20-5.40) L Hemoglobin 12.6 G/DL (12.0-16.0) Hematocrit 36.7 % (37.0-47.0) L Mean Corpuscular Volume 88 FL (80-99) Mean Corpuscular Hemoglobin 30.3 PG (27.0-31.0) Mean Corpuscular Hemoglobin Concent 34.3 G/DL (32.0-36.0) Red Cell Distribution Width 13.1 % (11.6-14.8) Platelet Count 299 K/UL (150-450) Mean Platelet Volume 6.0 FL (6.5-10.1) L Neutrophils (%) (Auto) 51.5 % (45.0-75.0) Lymphocytes (%) (Auto) 38.7 % (20.0-45.0) Monocytes (%) (Auto) 5.5 % (1.0-10.0) Eosinophils (%) (Auto) 2.3 % (0.0-3.0) Basophils (%) (Auto) 1.9 % (0.0-2.0) Sodium Level 142 MMOL/L (136-145) Potassium Level 3.6 MMOL/L (3.5-5.1) Chloride Level 107 MMOL/L (98-107) Carbon Dioxide Level 23 MMOL/L (21-32) Anion Gap 12 mmol/L (5-15) Blood Urea Nitrogen 17 mg/dL (7-18) Creatinine 0.8 MG/DL (0.55-1.30) Estimat Glomerular Filtration Rate > 60 mL/min (>60) Glucose Level 105 MG/DL (74-106) Hemoglobin A1c 6.0 % (4.3-6.0) Calcium Level 9.9 MG/DL (8.5-10.1) Phosphorus Level 3.9 MG/DL (2.5-4.9) Magnesium Level 2.0 MG/DL (1.8-2.4) Triglycerides Level 54 MG/DL (30-150) Cholesterol Level 157 MG/DL (< 200) LDL Cholesterol 83 mg/dL (<100) HDL Cholesterol 60 MG/DL (40-60) Cholesterol/HDL Ratio 2.6 (3.3-4.4) L Objective HEAD AND NECK: No JVD LUNGS: Clear. CARDIOVASCULAR: Regular S1 and S2 with no gallop or murmur. ABDOMEN: Soft and nontender. EXTREMITIES: No pitting edema. Mele Mcduffie MD Nov 16, 2019 09:31
[2019-11-16] MEDS: Docusate 100mg cap ORAL SCH (09:35)
[2019-11-16] MEDS: Heparin 5000 units/ml inj SUBQ SCH (09:36)
--- NOTE | 2019-11-16 09:48 | NUR ---
*-* INSURANCE *-* ALL CLINICALS AND REVIEWS HAVE BEEN FAXED TO: [facility] P: [phone] F: [phone]
[2019-11-16 12:00] VITALS: BP 120/76
--- NOTE | 2019-11-16 14:23 | NUR ---
CASE MANAGEMENT: REVIEW 11/16/19 SI:CHEST PAIN 97.7 77 16 120/76 98% ON RA IS:HEPARIN SQ BID NORVASC PO QD PROTONIX PO QD LIPITOR PO QHS \: 2E TELE UNIT DCP: HOME WHEN STABLE PLAN: NPO FOR STRESS TEST TODAY
--- NOTE | 2019-11-16 14:50 | Diagnostic Imaging Report ---
Indication: Left leg pain Technique: Grayscale and duplex images of the bilateral lower extremity veins Comparison: Unilateral left leg exam dated 03/17/2017 Findings: Exam is somewhat limited due to patient body habitus. Bilaterally, grayscale and duplex images demonstrate no evidence of intraluminal thrombus. Normal phasic Doppler waveforms, demonstrating normal augmentation response and no evidence of valvular insufficiency. Greater saphenous vein(s) and tibial veins are patent. Normal compressibility. No significant interim change from previous left leg exam Impression: Negative for evidence of lower extremity deep venous thrombosis bilaterally
--- NOTE | 2019-11-16 15:06 | Diagnostic Imaging Report ---
Indications: Chest pain Technique: Single day single isotope protocol utilized. Initially, resting images obtained using IV administration 10 point millicuries 99M technetium Myoview. Subsequently, patient underwent lexiscan stress testing. See cardiology report for details. During Lexiscan infusion, IV administration 30.3 mCi 99 M technetium Myoview. SPECT and planar images obtained. SPECT images gated to 8 phases of the cardiac cycle were also obtained, and reformatted into cine images for evaluation of ejection fraction. Comparison: none Findings: Per cardiology report, patient experienced flushing. Per cardiology report, resting EKG demonstrates normal sinus rhythm. No ST changes noted during infusion. . Imaging demonstrates no fixed nor reversible post stress perfusion defects. Normal cardiac chamber size. Calculated post stress ejection fraction 73%. No wall motion abnormality demonstrated Impression: Nonischemic clinical response to pharmacologic stress, per cardiology report Nonischemic electrocardiographic response to pharmacologic stress, per cardiology report No imaging findings to suggest ischemia, at level of stress achieved. Calculated post stress ejection fraction 73%
--- NOTE | 2019-11-16 16:24 | Discharge Instructions ---
Discharge Instructions Discharge Instructions Diet: cardiac 2 GM Na, low fat Resume Normal Activity?: Yes Activity: resume normal activities Follow Up Orders Follow up with your PCP within one week Follow up with Dr. Mele Mcduffie in 1-2 weeks. Call to make appointment. [phone] Avoid spicy foods, stress. Drink plenty of fluids. Rest. Ajit Alfaro D.O. Nov 16, 2019 16:24
[2019-11-16] MEDS ORDERED: FAMOTIDINE20 MG ORAL (16:30)
--- NOTE | 2019-11-16 17:11 | NUR ---
NURSE NOTES: Tele monitor and IV removed, no bleeding noted. Patient left the unit, accompanied by family members. No s/sx of acute distress, in stable condition. Belongings checked. DC instructions given to pt.
--- NOTE | 2019-11-16 18:20 | Discharge Summary ---
Discharge Summary Hospital Course Date of Admission Nov 14, 2019 at 11:24 Date of Discharge Nov 16, 2019 at 17:56 Admitting Diagnosis CHEST PAIN HPI Donna Yousif is a 59 year old female who was admitted on Nov 14, 2019 at 11:24 for Chest Pain Consultations cardiology Procedures NM stress test Hospital Course This is a 59-year-old female with a past medical history of hypertension, hyperlipidemia, obesity who presented with intermittent chest pressure lasting minutes at a time midsternal nonradiating with associated diaphoresis on and off for the past 3 weeks. She denies having any pain like this before. She states that she does not have a recent cold sinus infection and finished a course of Augmentin and Bactrim 2 to 3 weeks ago. Patient states that she does think her chest pain gets worse when she lays down. She denies any other acid reflux symptoms. In the ER the patient had stable vital signs CBC unremarkable CMP unremarkable. Initial troponin negative. D-dimer checked and was 1.81 so a CTPA was ordered which showed no pulmonary embolism. Venous duplex ultrasound negative for DVT. Serial troponins were negative. Telemetry showed no events. 2D echocardiogram was normal. Cardiology was consulted who recommended stress test given her risk factors. NM myocardial stress test was negative for ischemia. Chest pain suspected secondary to acid reflux or work exhaustion. Patient was discharged on pepcid 20mg BID with instructions to f/u with PCP within one week and Cardiology in 1-2 weeks. She was medically stable on discharge. The patient was discharged home. #Chest pain rule out ACS #Hypertension #Morbid Obesity #Family history of coronary artery disease > CT PA negative for PE -Telemetry: no events -Trend troponins: negative -2D echocardiogram -Continue Protonix as GERD may be possible etiology -Cardiology consult: Dr. Mcduffie - NPO after midnight for stress test -N.p.o. after midnight -We will guidance counselor patient on diet and exercise DVT PPx: HSQ Code status: Full 40 minutes spent on this discharge. Discussed with RN and Cardiology. > 50% spent on counseling and care coordination. Time of note may not reflect time patient was seen. Discharge Condition Upon Discharge: stable Discharge Vital Signs Last Vital Signs Date Time Temp Pulse Resp B/P (MAP) Pulse Ox O2 Delivery O2 Flow Rate FiO2 11/16/19 12:00 97.7 77 16 120/76 (91) 98 11/16/19 09:00 Room Air Discharge Disposition Patient was discharged to home Discharge Diagnoses: (1) GERD (gastroesophageal reflux disease) (2) Morbid obesity (3) Essential hypertension (4) Family history of coronary artery disease Discharge Instructions Discharge Instructions Activity: resume normal activities Ajit Alfaro D.O. Nov 16, 2019 18:20
== END 2019-11-16 17:56 | disposition home or self-care (01) ==
LOC: EMR 10:42 → 2E 11:24 → EDBEDREQ 13:17 → 2E 11-15 16:41
DX: R07.89 Other chest pain (principal); I10 Essential (primary) hypertension; E66.01 Morbid (severe) obesity due to excess calories
CPT/HCPCS: 36415; 71045; 71275; 78452; 80048; 80053; 80061; 83036; 83735; 83880; 84100; 84484; 85025; 85379; 93005; 93017; 93306; 93970; 96374; 99284; A4641; G0378; J1644; J1885; J2785; Q9967